=== PATIENT | male | born 1990 | race Caucasian/White ===

== ENCOUNTER 2020-04-03 17:57 | Emergency (ER) | payer OTHER ==
[~2020-04-03] VITALS: Ht 180 cm; Wt 55.0 kg
[2020-04-03 18:23] VITALS: BP 120/77
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
--- OUTSIDE RECORDS SUMMARY | 2020-04-03 23:51 | XMS REPORT | Continuity of Care Document ---
Author Organization Unknown Address Unknown Phone Unavailable Allergies There is no data. Medications There is no data. Problems There is no data. Procedures There is no data. Results There is no data. Encounters ACCT No. Visit Date/Time Discharge Status Pt. Type Provider Facility Loc./Unit Complaint [id number] 04/03/2020 17:58:00 020 18:34:00 DIS Emergency JAYASHREE JORDAN DO [facility] ER FS NEEDS MEDICALLY CLEARED
== END 2020-04-03 18:34 ==
LOC: ER FS 17:58
DX: Z03.89 Encounter for observation for other suspected diseases and conditions ruled out (principal); F17.200 Nicotine dependence, unspecified, uncomplicated
CPT/HCPCS: 99283